=== PATIENT | male | born 1960 | race African-American/Black ===

== ENCOUNTER 2017-03-03 08:36 | Emergency (ER) | payer OTHER ==
[~2017-03-03] VITALS: Ht 172.7 cm; Wt 163.0 kg
[2017-03-03] MEDS ORDERED: GABA-529 PO (08:49)
[2017-03-03] MEDS ORDERED: FURO20TA4 PO (08:49)
[2017-03-03] MEDS ORDERED: VENL-180 PO (08:49)
[2017-03-03] MEDS ORDERED: LOSA25TA12 PO (08:49)
[2017-03-03] MEDS ORDERED: MORPHINE SULFATE 4 MG/ML CPJ (NOT FOR IM USE) IV STA (10:54)
[2017-03-03] MEDS ORDERED: ONDANSETRON HCL 4MG/2ML VIAL IV STA (10:54)
[2017-03-03 11:31] LABS: BASOPHILS % 0.5 % (0.0-2.0); EOSINOPHILS % 4.2 % (0.0-5.0); HEMATOCRIT. 34.8 % (42.0-52.0); HEMOGLOBIN. 11.7 g/dL (14.0-18.0); INR 1.1; MEAN CORPUSCULAR HEMOGLOBIN 31.4 pg (28.0-32.0); MEAN CORPUSCULAR VOLUME 93.3 fL (80.0-94.0); MEAN PLATELET VOLUME 8.2 fl (7.4-10.4); MONOCYTES % 7.3 % (2.0-8.0); PLATELET 245 x1000/uL (130-400); PROTHROMBIN TIME 11.3 sec (9.4-11.6); RED BLOOD CELL COUNT 3.73 mill/uL (4.7-6.1); RED CELL DISTRIBUTION WIDTH 14.1 % (11.6-14.6)
[2017-03-03 11:43] LABS: CARBON DIOXIDE 32 mEq/L (21-32); CHLORIDE 102 mEq/L (98-107)
[2017-03-03 12:15] VITALS: BP 154/79
== END 2017-03-03 12:31 | disposition home or self-care (01) ==
LOC: ER 08:56
DX: K42.9 Umbilical hernia without obstruction or gangrene (principal); J44.9 Chronic obstructive pulmonary disease, unspecified; I50.9 Heart failure, unspecified; F12.10 Cannabis abuse, uncomplicated
CPT/HCPCS: 36415; 80053; 83690; 85025; 85610; 99284

== ENCOUNTER 2017-09-19 09:27 | Emergency (ER) | payer OTHER ==
[~2017-09-19] VITALS: Ht 177.8 cm; Wt 140.0 kg
[~2017-09-19 09:27] MED LIST: FURO20TA4 PO; GABA-529 PO; LOSA25TA12 PO; VENL-180 PO
[2017-09-19] MEDS ORDERED: MORPHINE SULFATE 4 MG/ML CPJ (NOT FOR IM USE) IV STA (10:54)
[2017-09-19] MEDS ORDERED: ONDANSETRON HCL 4MG/2ML VIAL IV STA (10:54)
[2017-09-19] MEDS ORDERED: SODIUM CHLORIDE 0.9% 1,000 ML IV ONE (10:54)
[2017-09-19 11:13] LABS: BASOPHILS % 0.9 % (0.0-2.0); EOSINOPHILS % 3.8 % (0.0-5.0); HEMATOCRIT. 37.7 % (42.0-52.0); LYMPHOCYTES % 19.2 % (20.0-50.0); MEAN CORPUSCULAR VOLUME 92.9 fL (80.0-94.0); MEAN PLATELET VOLUME 7.8 fl (7.4-10.4); MONOCYTES % 6.4 % (2.0-8.0); NEUTROPHILS % 69.7 % (40.0-76.0); PLATELET 284 x1000/uL (130-400); RED BLOOD CELL COUNT 4.05 mill/uL (4.7-6.1); RED CELL DISTRIBUTION WIDTH 13.7 % (11.6-14.6)
[2017-09-19 11:17] LABS: CHLORIDE 103 mEq/L (98-107)
[2017-09-19 11:18] LABS: INR 1.1; PROTHROMBIN TIME 11.2 sec (9.4-11.6)
[2017-09-19 11:52] LABS: CLARITY URINE CLEAR (CLEAR); COLOR URINE YELLOW (YELLOW); KETONES URINE NEGATIVE (NEGATIVE); LEUKOCYTE ESTERASE URINE NEGATIVE (NEGATIVE); NITRITE URINE NEGATIVE (NEGATIVE); OCCULT BLOOD URINE NEGATIVE (NEGATIVE); PH URINE 7.5 (4.5-8.0); PROTEIN URINE NEGATIVE (NEGATIVE); SPECIFIC GRAVITY URINE 1.015 (1.005-1.030); UROBILINOGEN URINE 0.2 E.U./dL (0.2-1.0)
[2017-09-19] MEDS ORDERED: IOHEXOL-300 100 ML BOTTLE ONE (13:15)
[2017-09-19 15:05] VITALS: BP 156/79
== END 2017-09-19 15:08 | disposition home or self-care (01) ==
LOC: ER 09:27
DX: K52.9 Noninfective gastroenteritis and colitis, unspecified (principal); K42.9 Umbilical hernia without obstruction or gangrene; R18.8 Other ascites; I11.0 Hypertensive heart disease with heart failure; K43.9 Ventral hernia without obstruction or gangrene
CPT/HCPCS: 36415; 74177; 80053; 81003; 83605; 83690; 85025; 85610; 96361; 96374; 96375; 99285; J2270; J2405; J7030; Q9967; Z7610